=== PATIENT | female | born 1980 | race American Indian/Alaskan Native ===

== ENCOUNTER 2018-02-06 06:08 | Observation (INO) | payer OTHER ==
--- NOTE | 2018-02-02 11:02 | Anesthesia Consultation ---
Anesthesia Consult and Med Hx Date of service: 02/02/18 - Airway Anesthetic Teeth Evaluation: Good ROM Head & Neck: Adequate Mental/Hyoid Distance: Adequate Mallampati Class: Class II Intubation Access Assessment: Probably Good - Pre-Operative Health Status ASA Pre-Surgery Classification: ASA2 Proposed Anesthetic Plan: General Nerve Block: TAP - Central Nervous System Hx Psychiatric Problems: No - Gastrointestinal Hx Gastroesophageal Reflux Disease: Yes - Hematic Hx Anemia: Yes - Other Systems Hx Alcohol Use: Yes (occas) Hx Cancer: No
[2018-02-02 11:45] LABS: Basophils % (Auto) 0.5 % (0.0-1.8); Eosinophils # (Auto) 0.1 K/mm3 (0.0-0.4); Eosinophils % (Auto) 1.1 % (0.0-4.3); Hemoglobin 10.7 gm/dl (10.1-14.3); Lymphocytes # (Auto) 2.1 K/mm3 (1.2-5.4); Lymphocytes % (Auto) 37.1 % (13.4-35.0); Mean Corpuscular HGB Conc 31 % (30-34); Mean Corpuscular Volume 75 fl (79-97); Monocytes # (Auto) 0.4 K/mm3 (0.0-0.8); Monocytes % (Auto) 7.8 % (0.0-7.3); Platelet Count 238 K/mm3 (140-440); Red Blood Count 4.69 M/mm3 (3.65-5.03)
[2018-02-02 11:47] LABS: Mean Corpuscular Hemoglobin 23 pg (28-32); Red Cell Distribution Width 20.1 % (13.2-15.2)
--- NOTE | 2018-02-05 18:49 | History and Physical Report ---
History of Present Illness Date of examination: 02/01/18 Chief complaint: Menorrhagia, pelvic pain, uterine fibroids, chronic anemia due to blood loss History of present illness: Past History : 1 Term Births: 1 Living Children: 1 Para: 1 # 1 Delivery date: 09/07/2009 Weeks Gestation: 39 Delivery type: Anesthesia type: epidural Delivery location: [facility] Sex: male weight: 7.13 [employer] History Uterine Surgery (not C/S): positive; myomectomy 2006 Operations: myomectomy Hospitalizations: negative Anesthesia Complications: negative Abnormal PAP: positive Uterine Anomaly: positive fibroids SHANE Exposure: negative Infertility: negative Relevant Family Hx: No Family History of DVT/PE on OCP Parents A&W Maternal uncle and aunt Non Hodgkins lymphoma Infection History Personal hx. of genital herpes: no Hx of STD: None Active Medications (reviewed today): IBUPROFEN 800 MG ORAL TABLET (IBUPROFEN) 1 po TID (PRN) OXYCODONE-ACETAMINOPHEN 5-325 MG ORAL TABLET (OXYCODONE-ACETAMINOPHEN) 1-2po q6h FERROUS SULFATE 325 (65 FE) MG ORAL TABLET (FERROUS SULFATE) 1 po qd Current Allergies (reviewed today): CIPRO (Critical) Past Medical History: Reviewed history from 10/19/2009 and no changes required: fibroids no hx of dvt while taking ocp no hx of coagulation disorder Past Surgical History: Reviewed history from 08/24/2011 and no changes required: myomectomy General Comments - FH: No Family History of DVT/PE on OCP Parents A&W Maternal uncle and aunt Non Hodgkins lymphoma Social History: Reviewed history from 10/20/2017 and no changes required: Patient is Smoking History: Patient has never smoked. 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 Complains of menorrhagia, abnormal vaginal bleeding and pelvic pain. Denies vaginal discharge, incontinence, dysuria, hematuria, urinary frequency, amenorrhea, genital sores, decreased libido, painful periods, painful sex, urinary urgency, hot flashes, vaginal dryness, vaginal itching and vaginal odor. CV Denies chest pains, palpitations, syncope, dyspnea on exertion, orthopnea, PND and peripheral edema. Resp Denies cough, dyspnea at rest, excessive sputum, hemoptysis, wheezing and pleurisy. GI Denies nausea, vomiting, diarrhea, constipation, change in bowel habits, abdominal pain, melena, hematochezia, jaundice, gas/bloating, indigestion/ heartburn, dysphagia and odynophagia. Endo Denies cold intolerance, heat intolerance, polydipsia, polyphagia, polyuria and unusual weight change. Breast Denies left breast lump, right breast lump, nipple discharge, bloody discharge from nipple, breast pain, abnormal mammogram and breast enlargement. MS Denies back pain, joint pain, joint swelling, muscle cramps, muscle weakness, stiffness, arthritis, sciatica, restless legs, leg pain at night and leg pain with exertion. Derm Denies rash, itching, dryness and suspicious lesions. Neuro Denies paralysis, paresthesias, headache, seizures, tremors, vertigo, transient blindness, frequent falls, frequent headaches and difficulty walking. Psych Denies depression, anxiety, irritability and mood swings. Eyes Denies blurring, diplopia, irritation, discharge, vision loss, eye pain and photophobia. ENT Denies earache, ear discharge, tinnitus, decreased hearing, nasal congestion, nosebleeds, sore throat and hoarseness. Allergy Denies urticaria, allergic rash, hay fever and recurrent infections. Heme Denies abnormal bruising, bleeding and enlarged lymph nodes. Physical Exam Appearance: well developed, well nourished, no acute distress Other Exams Lungs: no rales, rhonchi, or wheezes Heart: S1, S2, no murmur, rub, or gallop Abdomen: soft, non-tender, no masses Skin: no ulcers, xanthomas Extremities: normal alignment, no joint enlargement, crepitus, masses or tenderness; normal tone and strength Genitourinary Exam Vulva: normal, no lesions or discharge Urethral meatus: normal size and location, no lesions or discharge Urethra: no discharge Bladder: no cystocele Vagina: no abnormalities Cervix: no abnormalities seen Uterus: fixed Uterus Size: 14-15 weeks Adnexa: no masses or tenderness Impression & Recommendations: Problem # 1: Menorrhagia (ICD-626.2) (FWT03-E93.0) Diagnosis explained to patient . Questions answered. Discussed with patient various medical and surgical therapies common for treatment: Hormonal/medical therapy,endometrial ablation or hysterectomy. She desires to proceed with hysterectomy with removal of both of her fallopian tubes. Consent reviewed and signed . Possible laparoscopy or laparotomy explained to patient. The risks and alternatives for this surgery were reviewed with the patient. She was informed of possible bleeding, infection, injury to bowel, bladder, ureters or other adjacent organs. She was informed she will not be able to get after her uterus has been removed. She desires ovarina conservation. She was informed she may require surgery later to have her ovaries removed for a benign or mailgnant condition The patient was instructed/informed the following: The normal length of hospital stay for this procedure. Nothing to eat or drink after midnight the evening prior to surgery. Clear liquids the day before surgery. Fleets enema the day prior to surgery. Pre-op instruction sheets given. Wound care instructions given. Infection precautions reviewed, patient to call for any signs or symptoms of infection. The usual discomforts associated with this procedure were detailed. Proper use of pain medicines was reviewed. Patient was given ample opportunity to have all her questions answered before signing informed consent. Problem # 2: Fibroids of uterus; Intramural (ICD-218.1) (WNU00-A42.1) Diagnosis explained to patient . Questions answered. Discussed with patient various medical, surgical and radioloigal therapies common for treatment: Hormonal/medical therapy, fibroid embolization, removal of fibroids or hysterectomy Problem # 3: Pelvic and perineal pain (ICD-789.00) (JOG29-J88.2) It was extensively explained to her that her pain may persist, recur or change in nature due to the difficulty with diagnosis chronic pelvic pain or development of adhesions. 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 1 po tid (prn) 2) Oxycodone-acetaminophen 5-325 Mg Oral Tablet (Oxycodone-acetaminophen) .... 1-2po q6h Prescriptions: IBUPROFEN 800 MG ORAL TABLET (IBUPROFEN) 1 po TID (PRN) #30 x 1 Entered and Authorized by: Nadiya Pascal MD Method used: Print then Give to Patient RxID: [id number] OXYCODONE-ACETAMINOPHEN 5-325 MG ORAL TABLET (OXYCODONE-ACETAMINOPHEN) 1-2po q6h #30 Tablet x 0 Entered and Authorized by: Nadiya Pascal MD Method used: Print then Give to Patient RxID: [id number] Medications and Allergies Allergies Allergy/AdvReac Type Severity Reaction Status Date / Time ciprofloxacin [From Cipro] Allergy Hives Verified 01/30/18 09:16 Home Medications Medication Instructions Recorded Confirmed Last Taken Type No Known Home Medications [No 01/30/18 01/30/18 Unknown History Reported Home Medications] Active Meds: Active Medications Bupivacaine HCl (Marcaine 0.5%) 20 ml INFILTRATI PREOP NR Stop: 02/06/18 23:59 Famotidine (Pepcid) 20 mg IV PREOP NR Stop: 02/06/18 23:59 Fentanyl (Sublimaze) 100 mcg IV ONCE ONE Stop: 02/06/18 07:01 Lactated Ringer's (Lactated Ringers) 1,000 mls @ 100 mls/hr IV DIRECT DIPIKA Cefazolin Sodium (Ancef/Sterile Water 2 Gm/20 Ml) 2 gm in 20 mls @ 80 mls/hr IV PREOP NR; Protocol Stop: 02/06/18 23:59 Lidocaine (Xylocaine 1% 20 Ml) 10 ml INFILTRATI PREOP NR Stop: 02/06/18 23:59 Midazolam HCl (Versed) 2 mg IV PREOP NR Stop: 02/06/18 23:59 Sodium Chloride (Nacl P/F Vial (10 Ml)) 1 ml INFILTRATI PREOP NR Stop: 02/06/18 23:59 Exam Vital Signs Temp Pulse Resp BP 98.1 F 64 20 120/84 02/02/18 11:00 02/02/18 11:00 02/02/18 11:00 02/02/18 11:00 Results - Labs 02/02/18 11:00 Assessment and Plan - Patient Problems (1) Menorrhagia Status: Chronic (2) Fibroid Status: Chronic Qualifiers: Uterine leiomyoma location: intramural and subserous Qualified Code(s): D25.1 - Intramural leiomyoma of uterus; D25.2 - Subserosal leiomyoma of uterus (3) Pelvic pain Status: Chronic (4) Anemia Status: Chronic Qualifiers: Iron deficiency anemia type: chronic blood loss (5) Patient is Anglican Status: Chronic
[~2018-02-06 06:08] MED LIST: ANCEF/STERILE WATER 2 GM/20 ML 2 GM/20 ML SYRINGE IV NR
[2018-02-06] MEDS ORDERED: NACL BACTERIOSTATIC INFILTRATI ONE (06:44)
[2018-02-06] MEDS ORDERED: VERSED IV NR (07:00)
[2018-02-06] MEDS ORDERED: SUBLIMAZE IV ONE (07:00)
[2018-02-06] MEDS ORDERED: PEPCID IV NR (07:00)
[2018-02-06] MEDS ORDERED: NACL P/F VIAL (10 ML) INFILTRATI NR (07:00)
[2018-02-06] MEDS ORDERED: LACTATED RINGERS 1,000 ML IV SCH (07:00)
[2018-02-06] MEDS ORDERED: XYLOCAINE 1% 20 mL INFILTRATI NR (07:00)
[2018-02-06] MEDS ORDERED: MARCAINE 0.5% INFILTRATI NR (07:00)
[2018-02-06] MEDS ORDERED: DILAUDID ONE (07:15)
[2018-02-06] MEDS ORDERED: ZEMURON IV ONE (07:15)
[2018-02-06] MEDS ORDERED: XYLOCAINE MPF 2% ONE (07:15)
[2018-02-06] MEDS ORDERED: DIPRIVAN 10 MG/ML IV ONE (07:15)
[2018-02-06] MEDS ORDERED: DEMEROL IV PRN (07:33)
[2018-02-06] MEDS ORDERED: ZOFRAN IV PRN ×2 (07:33→13:26)
[2018-02-06] MEDS ORDERED: TORADOL IV PRN (07:33)
--- NOTE | 2018-02-06 07:33 | Anesthesia Day of Surgery ---
Anesthesia Day of Surgery - Day of Surgery Patient Examined: Yes Patient H&P Reviewed: Yes Patient is NPO: Yes
[2018-02-06] MEDS ORDERED: NEOSPORIN GU IR ONE ×2 (07:34→10:00)
[2018-02-06] MEDS ORDERED: BLOXIVERZ ONE (08:22)
[2018-02-06] MEDS ORDERED: ACD-A 500 ML IV ONE (08:22)
[2018-02-06] MEDS ORDERED: CALCIUM CHLORIDE IV ONE (08:22)
[2018-02-06] MEDS ORDERED: ROBINUL ONE (08:22)
[2018-02-06] MEDS ORDERED: DECADRON ONE (08:22)
[2018-02-06] MEDS ORDERED: ZOFRAN ONE (08:22)
[2018-02-06] MEDS ORDERED: MARCAINE 0.5% 30 ML INFILTRATI ONE (08:23)
[2018-02-06] MEDS ORDERED: THROMBIN (BOVINE) TP ONE (08:23)
[2018-02-06] MEDS ORDERED: NACL 0.9% 0 ML ONE (09:03)
[2018-02-06] MEDS ORDERED: Vasostrict ONE (09:04)
[2018-02-06] MEDS ORDERED: SUBLIMAZE ONE ×2 (09:13→09:53)
[2018-02-06] MEDS ORDERED: WATER FOR IRRIG STERILE IR ONE (10:00)
[2018-02-06] MEDS ORDERED: MARCAINE 0.5% INFILTRATI ONE (10:00)
[2018-02-06] MEDS ORDERED: NACL 0.9% IR ONE (10:00)
--- NOTE | 2018-02-06 10:56 | Post Operative Note ---
Pre-op diagnosis: see History Post-op diagnosis: same Procedure: RATH; (B) salpingectomy Anesthesia: GETA Surgeon: PRATIBHA SOLIS Estimated blood loss: 50-100ml Specimen disposition: to lab Condition: stable Disposition: PACU
[2018-02-06] MEDS: DILAUDID IV PRN ×4 (11:05→12:00)
[2018-02-06] MEDS ORDERED: TYLENOL PR PRN (13:26)
[2018-02-06] MEDS ORDERED: REGLAN IV PRN (13:26)
[2018-02-06] MEDS ORDERED: REGLAN PO PRN (13:26)
[2018-02-06] MEDS ORDERED: ZOFRAN PO PRN (13:26)
[2018-02-06] MEDS ORDERED: TYLENOL PO PRN (15:44)
[2018-02-06] MEDS: ANCEF/NS 1 GM/50 ML 1 GM/50 ML BAG IV SCH ×2 (16:01→23:10)
[2018-02-06] MEDS: MORPHINE IV PRN ×2 (16:02→22:06)
--- NOTE | 2018-02-06 17:28 | Event Note ---
Date: 02/06/18 Called by RN stating patient c/o SOB and "feels like something is sitting on mychest." On arrival patient restin n bed with a bedside holding her hand, patient alert and appropriately responsive. Mild distress but able to hold conversation easily. VSS, lungs clear (B) bases however poor effort. Abdomen soft, +bs. UO ~130/hr, clear yellow. Sats 100% on RA, however b/c she was still drowsy when she present the floor the RN placed 2LNC still with 100% sats. She states she calms down when I talk to her, EKG results now with ? left atrial enlargement. Her EKG was normal 01/16/2018. ABG results noted. However will proceed Chest CT for PE and cardiology consultation. S/w Dr. Wilde, [facility], informed of symptoms and EKG findings. States to proceed with CT chest.
[2018-02-06 18:04] LABS: BUN/Creatinine Ratio 8; Blood Urea Nitrogen 5 mg/dL (7-17); Calcium 9.2 mg/dL (8.4-10.2); Hemolysis Index 5
--- NOTE | 2018-02-06 18:04 | Operative Report ---
Operative Report Operative Report: Date: 02/06/2018 Preoperative diagnosis: 1. Menorrhagia 2. Pelvic pain 3. Uterine fibroids 4. Chronic anemia due to blood loss Postoperative diagnosis: 1. Menorrhagia 2. Pelvic pain 3. Uterine fibroids 4. Chronic anemia due to blood loss 5. Pelvic adhesions Procedure: 1. Robotic-assisted laparoscopic total hysterectomy with bilateral salpingectomy 2. Lysis of adhesions Surgeon: Nadiya Pascal MD Mobile Application Developer: Nori Dickerson Anesthesiologist: Paris Harmon M.D. Anesthesia: General endotracheal anesthesia EBL: Approximately 100 mL Findings: Uterus was sounded to 14 cm. Grossly normal fallopian tubes and ovaries. Enlarged uterus. Omental adhesions anterior abdominal wall and uterus. Procedure: Patient was taken to the OR and placed in the supine position. General anesthesia was induced and an oral gastric tube was placed. Her neck and head were placed on foam support. Foam eye protection with goggles were secured in place. Then foam face protection was placed and secured. Foam shoulder pads were then positioned on her shoulders for Trendelenburg positioning. She was then placed in dorsolithotomy position. The abdomen and vagina were then prepped and draped in the usual sterile fashion. Timeout was performed. A Rivera catheter was inserted into the bladder with drainage of clear yellow urine. The operative speculum was introduced into the vagina and the anterior lip of the cervix was grasped with single-toothed tenaculum. The uterus was sounded to 14 cm. The cervix was progressively dilated to allow the large V care uterine manipulator. The bulb of the manipulator was inflated and the speculum and tenaculum were removed. The cup of the manipulator was placed around the cervix and the blue occluder of the manipulator was properly positioned in the vagina. A laparotomy sponge that was saturated with a solution of polymyxin and saline was placed in the vagina to ensure pneumoperitoneum. Sterile gloves were placed and attention was turned to the abdomen. A 10mm vertical supraumbilical incision was made approximately 10 cm superior to the elevated fundus of the uterus. A 10/12 mm Optiview trocar with the laparoscope and camera attached was introduced through this incision under direct visualization. The abdomen was insufflated. No obvious bowel, bladder, ureteral, or major vascular injury was noted. The patient was then placed in steep Trendelenburg position and the following trochars were placed under direct visualization: 8 mm robotic trochars were placed through incisions made in the bilateral midclavicular lower abdominal region approximately 10 cm lateral and approximately 2 cm below the midline incision, and a 5 mm trocar was placed through an incision made in the right lower lateral pelvis approximately 2 cm superior to the iliac crest. The 10 mm laparoscope was then replaced by a 5 mm laparoscope that was placed through the 5 millimeter lateral trocar. The 10/12 mm trocar was then removed in the Emeterio Cao fascial closure device was placed through the incision and a 0 Vicryl was placed through the fascia. Once the suture was secured the 10/12 mm trocar was reintroduced. Once the trochars were in the appropriate positions, the da Sally robot system was engaged. The EndoShears and bipolar device was placed through the 8 mm trochars and positioned then attention was turned to the console. The uterus was elevated and bilateral salpingectomy was performed. Each tube was removed through the 5 mm trocar and sent to pathology in separate containers. Then the utero-ovarian ligaments were clamped. cauterized and incised bilaterally using 30 W of energy. Then the round ligaments were clamped , cauterized and incised bilaterally. The anterior leaf of the broad ligament was elevated and careful blunt and sharp dissection the bladder flap was created and dissected away from the lower uterine segment and cervix. The posterior leaf of the broad ligament was dissected away from the uterine vessels. The cup of the uterine manipulator was palpated both anteriorly and posteriorly. Course of the ureters was visualized and was confirmed to be away from the operative field. The uterine vessels were then clamped and cauterized bilaterally. Blanching of the uterus was then noted. Attention was again turned to the anterior lower uterine segment and the bladder was confirmed to be away from the operative field. Then attention was turned again to the posterior where the cup of the manipulator was palpated and a colpotomy was performed down to the cup. The incision was extended in the lateral position the uterine vessels that were again clamped and cauterized and incised. Continuing along the cup of the manipulator in a circumferential manner the colpotomy was completed. The uterus and cervix were then removed through the vaginal incision. The pelvis was irrigated with warm normal saline. A moist laparotomy sponge was placed in the vagina to maintain pneumoperitoneum. The vagina cuff was reapproximated using V LOC 180 suture in a simple running stitch. Then a J stitch was performed to secure the suture. Again the pelvis was copiously irrigated with polymixin in warm normal saline. The laparotomy sponge was removed from the vagina. No bowel, bladder, ureteral or major vascular injury was noted. Once hemostasis was noted, platelet rich plasma was applied to the operative field to ensure hemostasis. Then platelet poor plasma was applied to the operative field to decrease formation of adhesions. Again hemostasis was noted. Grossly normal appendix was noted. Then the instruments were removed, the robot was disengaged. The 10/12 mm trocar was removed and the fascia was ligated with the 0 Vicryl suture that was placed at the beginning of the procedure. The patient was taken out of Trendelenburg position, the abdomen was desufflated, the remaining trochars were removed. Incisions were reapproximated using 4-0 Vicryl in a subcuticular manner. Incisions were infused with half percent Marcaine without epinephrine and Surgiseal was placed over the incisions. The vagina was then inspected, no bleeding was noted and clear yellow urine was draining into the Rivera bag from the bladder at the end of the procedure. Patient was taken to recovery room in stable condition.
[2018-02-06] MEDS: TORADOL IV SCH (19:51)
--- NOTE | 2018-02-06 20:09 | Cat Scan Report ---
FINAL REPORT PROCEDURE: CT ANGIO CHEST TECHNIQUE: Computerized tomographic angiography of the chest was performed after the IV injection of iodinated nonionic contrast including image processing. The image data was postprocessed using 2-dimensional multiplanar reformatted (MPR) and 3-dimensional (MIP and/or volume rendered) techniques. HISTORY: c/o chest discomfort. Hysterectomy today. COMPARISON: No prior studies are available for comparison. FINDINGS: The left thyroid lobe is enlarged and heterogeneously enhancing. Heart and pericardium: No pericardial effusion or thickening. Thoracic aorta: Normal. Pulmonary vasculature: Normal. Lymph nodes: No enlarged thoracic lymph nodes. Lungs: Normal. Pleural space: No effusion, thickening, or pneumothorax. Musculoskeletal structures: No significant abnormality. Upper abdominal structures: There is free intraperitoneal for air present, likely related to recent hysterectomy. IMPRESSION: No evidence of pulmonary emboli.
--- NOTE | 2018-02-06 20:19 | Progress Note ---
Assessment and Plan - Patient Problems (1) History of robot-assisted laparoscopic hysterectomy Current Visit: Yes Status: Acute (2) Status post bilateral salpingectomy Current Visit: Yes Status: Acute (3) Shortness of breath Current Visit: Yes Status: Acute Plan to address problem: Feels much better. S/w Dr. Bryan, CT chest negative for PE, patient and aware, also discuss EKG findings, explained since she's stable will obtain cardiology consult in AM. Operative findings and procedure discussed. She voiced understanding and agrees with plan of care. (4) Patient is Mandaeism Current Visit: No Status: Chronic (5) Menorrhagia Current Visit: No Status: Resolved (6) Fibroid Current Visit: No Status: Resolved Qualifiers: Uterine leiomyoma location: intramural and subserous Qualified Code(s): D25.1 - Intramural leiomyoma of uterus; D25.2 - Subserosal leiomyoma of uterus (7) Pelvic pain Current Visit: No Status: Resolved (8) Anemia Current Visit: No Status: Chronic Qualifiers: Iron deficiency anemia type: chronic blood loss Subjective - Subjective Date of service: 02/06/18 Principal diagnosis: DOS RATH (B) salpingectomy, SOB Interval history: See Event note, feels much better, no SOB or CP, resting in bed with her present Objective - Vital Signs Latest vital signs: Vital Signs Temp Pulse Resp BP BP Pulse Ox 02/06/18 19:51 18 02/06/18 16:02 16 02/06/18 16:00 98.7 F 64 16 134/84 100 02/06/18 12:45 98 F 72 16 139/87 100 02/06/18 12:30 14 02/06/18 12:25 97.7 F 74 16 126/74 100 02/06/18 12:15 72 18 123/78 02/06/18 12:00 69 13 127/76 100 02/06/18 11:45 65 17 120/81 100 02/06/18 11:30 63 12 137/84 100 02/06/18 11:18 14 02/06/18 11:15 63 12 139/83 100 02/06/18 11:08 13 02/06/18 11:05 13 02/06/18 11:00 62 10 L 138/83 100 02/06/18 10:55 64 11 L 139/84 100 02/06/18 10:50 61 12 141/86 100 02/06/18 10:45 59 L 18 148/92 100 02/06/18 10:40 61 14 132/85 100 02/06/18 07:20 98.2 F 65 16 123/87 100 02/06/18 06:35 98.2 F 65 16 123/87 100 Intake and Output 02/06/18 02/06/18 02/06/18 06:59 14:59 22:59 Intake Total 1800 Output Total 750 Balance 1050 Intake: IV 1800 Output: Urine 750 Other: Voiding Method Indwelling Catheter - Labs Labs: Abnormal lab results 02/06/18 02/06/18 Range/Units 17:21 17:45 POC ABG pH 7.563 H (7.35-7.45) POC ABG pCO2 20.6 L (35-45) Carbon Dioxide 19 L (22-30) mmol/L BUN 5 L (7-17) mg/dL Creatinine 0.6 L (0.7-1.2) mg/dL Glucose 112 H (65-100) mg/dL
[2018-02-06] MEDS: PEPCID IV SCH (21:18)
[2018-02-06] MEDS: LACTATED RINGERS 1,000 ML IV SCH (21:19)
[2018-02-07] MEDS: TORADOL IV SCH ×2 (03:32→06:44)
[2018-02-07] MEDS: MORPHINE IV PRN (05:03)
[2018-02-07] MEDS: LACTATED RINGERS 1,000 ML IV SCH (05:06)
[2018-02-07 06:13] LABS: Hemoglobin 9.3 gm/dl (10.1-14.3)
--- NOTE | 2018-02-07 09:47 | Progress Note ---
Assessment and Plan POD#1 s/p RATH with (B) salpingectomy No further episodes of SOB or chest tightness Normal EKG 01/16/2018, now probably atrial enlargement Cardiology consult pending. Patient doing well will allow home if cleared by cardiology Patient and aware of and agrees with plan of care. - Patient Problems (1) History of robot-assisted laparoscopic hysterectomy Current Visit: Yes Status: Acute (2) Status post bilateral salpingectomy Current Visit: Yes Status: Acute (3) EKG abnormalities Current Visit: Yes Status: Acute Plan to address problem: Further plan of care after consultation completed (4) Shortness of breath Current Visit: Yes Status: Resolved Plan to address problem: Probable anxiety exacerbation, resolved. (5) Patient is Faith Current Visit: No Status: Chronic (6) Menorrhagia Current Visit: No Status: Resolved (7) Fibroid Current Visit: No Status: Resolved Qualifiers: Uterine leiomyoma location: intramural and subserous Qualified Code(s): D25.1 - Intramural leiomyoma of uterus; D25.2 - Subserosal leiomyoma of uterus (8) Pelvic pain Current Visit: No Status: Resolved (9) Anemia Current Visit: No Status: Chronic Qualifiers: Iron deficiency anemia type: chronic blood loss Subjective - Subjective Date of service: 02/07/18 Principal diagnosis: POD#1 RATH (B) salpingectomy, SOB Interval history: Resting in bed, no complaints, feels much better today. Patient reports: pain well controlled Objective - Vital Signs Latest vital signs: Vital Signs Temp Pulse Resp BP BP Pulse Ox 02/07/18 05:03 18 02/07/18 04:00 98.7 F 78 18 127/73 02/07/18 00:00 99.1 F 69 16 127/73 02/06/18 22:06 18 02/06/18 19:51 18 02/06/18 19:30 98.6 F 71 18 131/75 02/06/18 16:02 16 02/06/18 16:00 98.7 F 64 16 134/84 100 02/06/18 12:45 98 F 72 16 139/87 100 02/06/18 12:30 14 02/06/18 12:25 97.7 F 74 16 126/74 100 02/06/18 12:15 72 18 123/78 100 02/06/18 12:00 69 13 127/76 100 02/06/18 11:45 65 17 120/81 02/06/18 11:30 63 12 137/84 02/06/18 11:18 14 02/06/18 11:15 63 12 139/83 02/06/18 11:08 13 02/06/18 11:05 13 02/06/18 11:00 62 10 L 138/83 02/06/18 10:55 64 11 L 139/84 02/06/18 10:50 61 12 141/86 02/06/18 10:45 59 L 18 148/92 02/06/18 10:40 61 14 132/85 100 Intake and Output 02/06/18 02/07/18 02/07/18 22:59 06:59 14:59 Intake Total 50 972.917 Output Total 900 2200 Balance -850 -1227.083 Intake: IV 50 972.917 ANCEF/NS 1 GM/50 ML 1 gm 50 In 50 ml @ 100 mls/hr IV Q8H DIPIKA Rx#:[id number] Lactated Ringers 1,000 ml 972.917 @ 125 mls/hr IV DIRECT DIPIKA Rx#:[id number] Output: Urine 900 2200 Indwelling Catheter 900 2200 Other: Total, Output Amount 900 800 Voiding Method Indwelling Catheter Indwelling Catheter - Exam Breasts: Present: deferred Cardiovascular: Present: Regular rate Lungs: Present: Clear to auscultation Abdomen: Present: normal appearance, soft, normal bowel sounds. Absent: distention, tenderness Extremities: Present: normal. Absent: tenderness, edema Incision: Present: normal, dry, intact - Labs Labs: Abnormal lab results 02/06/18 02/06/18 02/07/18 Range/Units 17:21 17:45 05:43 Hgb 9.3 L (10.1-14.3) gm/dl Hct 30.0 L (30.3-42.9) % POC ABG pH 7.563 H (7.35-7.45) POC ABG pCO2 20.6 L (35-45) Carbon Dioxide 19 L (22-30) mmol/L BUN 5 L (7-17) mg/dL Creatinine 0.6 L (0.7-1.2) mg/dL Glucose 112 H (65-100) mg/dL
[2018-02-07] MEDS: PERCOCET 5/325 PO PRN ×2 (10:49→17:23)
[2018-02-07] MEDS: PEPCID IV SCH (10:49)
--- NOTE | 2018-02-07 14:05 | Consultation ---
<GABBY CHILDS - Last Filed: 02/07/18 14:16> History of Present Illness Consult date: 02/07/18 Requesting physician: PRATIBHA SOLIS Consult reason: other (abnormal ECG ) History of present illness: Pt is a 37 YO female who presented with complaints of menorrhagia, abnormal vaginal bleeding and pelvic pain. She subsequently underwent robotic-assisted laparoscopic total hysterectomy with bilateral salpingectomy and lysis of adhesions. Post-operatively, she developed SOB and transient chest pressure and ECG was preliminarily interpreted as NSR with LAE and thus cardiology has been consulted for further evaluation. ECG reviewed - ECG demonstrates NSR with NO LAE and no acute findings. Chest CTA negative for PE. H/H noted to be decreased post-operatively. Past History Past Medical History: other ( menorrhagia, uterine fibroids) Social history: , lives with family. denies: smoking, alcohol abuse, prescription drug abuse Medications and Allergies Allergies Allergy/AdvReac Type Severity Reaction Status Date / Time ciprofloxacin [From Cipro] Allergy Hives Verified 01/30/18 09:16 Home Medications Medication Instructions Recorded Confirmed Last Taken Type No Known Home Medications [No 01/30/18 01/30/18 Unknown History Reported Home Medications] Active Meds: Active Medications Acetaminophen (Tylenol) 650 mg PO Q8HR PRN PRN Reason: Pain MILD(1-3)/Fever >100.5/MONDRAGON Acetaminophen (Tylenol) 650 mg PA Q6H PRN PRN Reason: Pain MILD(1-3)/Fever >100.5/MONDRAGON Famotidine (Pepcid) 20 mg IV BID [facility] Last Admin: 02/07/18 10:49 Dose: 20 mg Lactated Ringer's (Lactated Ringers) 1,000 mls @ 125 mls/hr IV DIRECT [facility] Last Admin: 02/07/18 05:06 Dose: 125 mls/hr Metoclopramide HCl (Reglan) 10 mg IV Q6H PRN PRN Reason: Nausea And Vomiting Metoclopramide HCl (Reglan) 10 mg PO Q6H PRN PRN Reason: Nausea And Vomiting Morphine Sulfate (Morphine) 2 mg IV Q4H PRN PRN Reason: Pain, Moderate (4-6) Last Admin: 02/07/18 05:03 Dose: 2 mg Ondansetron HCl (Zofran) 4 mg IV Q8H PRN PRN Reason: N/V unrelieved by Reglan Ondansetron HCl (Zofran) 4 mg PO Q8H PRN PRN Reason: N/V unrelieved by Reglan Oxycodone/Acetaminophen (Percocet 5/325) 2 tab PO Q6H PRN PRN Reason: Pain, Moderate (4-6) Last Admin: 02/07/18 10:49 Dose: 2 tab Review of Systems All systems: negative Cardiovascular: shortness of breath, no chest pain Genitourinary Female: pelvic pain, menorrhagia Physical Examination Vital Signs Temp Pulse Resp BP 98.1 F 64 20 120/84 02/02/18 11:00 02/02/18 11:00 02/02/18 11:00 02/02/18 11:00 General appearance: no acute distress HEENT: Positive: PERRL, Normocephaly, Mucus Membranes Moist Neck: Positive: neck supple, trachea midline Cardiac: Positive: Reg Rate and Rhythm, S1/S2 Lungs: Positive: clear to auscultation Neuro: Positive: Grossly Intact Abdomen: Positive: Soft. Negative: Tender Skin: Positive: Clear. Negative: Rash, Wound Musculoskeletal: No Fluid Collection, No Pain, Normal Range of Motion Extremities: Absent: edema Results 02/07/18 05:43 02/06/18 17:45 CBC 02/07/18 Range/Units 05:43 Hgb 9.3 L (10.1-14.3) gm/dl Hct 30.0 L (30.3-42.9) % Comprehensive Metabolic Panel 02/06/18 Range/Units 17:45 Sodium 140 (137-145) mmol/L Potassium 4.0 (3.6-5.0) mmol/L Chloride 103.8 (98-107) mmol/L Carbon Dioxide 19 L (22-30) mmol/L BUN 5 L (7-17) mg/dL Creatinine 0.6 L (0.7-1.2) mg/dL Glucose 112 H (65-100) mg/dL Calcium 9.2 (8.4-10.2) mg/dL - Imaging and Cardiology Echo: pending EKG: report reviewed, image reviewed EKG interpretations - Telemetry EKG Rhythm: Sinus Rhythm - EKG Sinus rhythms and dysrhythmias: sinus rhythm Assessment and Plan Obtain echo. Obtain Kelvin. Pending echo shows no gross abnormalities and Kelvin negative for AMI, pt may discharge home from cardiology standpoint. The patient has been seen in conjunction with Dr. Choi who agrees with the assessment and plan of care. - Patient Problems (1) Dyspnea Status: Acute (2) Chest pressure Status: Resolved (3) History of robot-assisted laparoscopic hysterectomy Status: Chronic (4) Status post bilateral salpingectomy Status: Chronic (5) Anemia Status: Acute Qualifiers: Iron deficiency anemia type: chronic blood loss (6) Patient is Worship Status: Chronic <CHERYLE CHOI R - Last Filed: 02/07/18 18:38> History of Present Illness History of present illness: ecg demonstrates normal sinus rhythm with possible left atrial enlargement. echocardiogram demonstrates normal chamber dimensions. Physical Examination Vital Signs Temp Pulse Resp BP 98.1 F 64 20 120/84 02/02/18 11:00 02/02/18 11:00 02/02/18 11:00 02/02/18 11:00 Results 02/07/18 05:43 02/06/18 17:45 Cardiac Enzymes 02/07/18 Range/Units 15:45 CK-MB (CK-2) < 1.0 (0.0-4.0) ng/mL CBC 02/07/18 Range/Units 05:43 Hgb 9.3 L (10.1-14.3) gm/dl Hct 30.0 L (30.3-42.9) %
[2018-02-07 16:37] LABS: Creatine Kinase MB < 1.0 ng/mL (0.0-4.0)
[2018-02-07 17:20] VITALS: BP 125/77
== END 2018-02-07 18:00 | disposition home or self-care (01) ==
LOC: OR 06:08 → OB 10:45
PROVIDERS: ADMIT Obstetrics & Gynecology; ATTEND Obstetrics & Gynecology
DX: N92.0 Excessive and frequent menstruation with regular cycle (principal); D25.1 Intramural leiomyoma of uterus; N73.6 Female pelvic peritoneal adhesions (postinfective); D50.0 Iron deficiency anemia secondary to blood loss (chronic); K21.9 Gastro-esophageal reflux disease without esophagitis; R06.02 Shortness of breath; R94.31 Abnormal electrocardiogram [ECG] [EKG]; Z72.89 Other problems related to lifestyle
CPT/HCPCS: 36415; 36600; 58554; 71275; 80048; 81025; 82550; 82553; 82803; 84484; 85014; 85018; 85025; 88302; 88305; 88307; 93005; 93010; 93306; 96365; 96375; 96376; A4217; G0378; J0690; J1100; J1170; J1885; J2175; J2250; J2270; J2405; J2704; J2710; J3010; J7120; Q9967; S2900

== ENCOUNTER → 2018-02-21 | Outpatient (CLI) | payer OTHER | END | disposition home or self-care (01) | LOC: VAS 09:33 | PROVIDERS: ATTEND Obstetrics & Gynecology | DX: M79.661 Pain in right lower leg (principal); M79.662 Pain in left lower leg; K21.9 Gastro-esophageal reflux disease without esophagitis; Z88.1 Allergy status to other antibiotic agents | CPT/HCPCS: 93970 ==